=== PATIENT | female | born 1945 | race Two or more races ===

== ENCOUNTER → 2020-07-02 | Outpatient (CLI) | payer OTHER | END | disposition home or self-care (01) | LOC: PPH VACUNA | PROVIDERS: ATTEND Emergency Medicine Pediatric Emergency Medicine | DX: Z23 Encounter for immunization (principal) ==

== ENCOUNTER 2021-03-16 09:50 | Outpatient (CLI) | payer OTHER | END 2021-03-16 10:30 | disposition home or self-care (01) | LOC: PPH VACUNA 09:50 | PROVIDERS: ATTEND Emergency Medicine Pediatric Emergency Medicine | DX: Z23 Encounter for immunization (principal) ==

== ENCOUNTER 2021-09-24 08:00 | Outpatient (CLI) | payer OTHER | END 2021-09-24 08:30 | disposition home or self-care (01) | LOC: PPH VACUNA 08:00 | PROVIDERS: ATTEND Emergency Medicine Pediatric Emergency Medicine | DX: Z23 Encounter for immunization (principal) ==

== ENCOUNTER 2022-03-11 13:15 | Outpatient (CLI) | payer OTHER | END 2022-03-11 13:25 | disposition home or self-care (01) | LOC: PPH VACUNA 13:15 | PROVIDERS: ATTEND Emergency Medicine Pediatric Emergency Medicine | DX: Z23 Encounter for immunization (principal) ==

== ENCOUNTER 2023-03-28 10:21 | Outpatient (CLI) | payer OTHER | END 2023-03-28 10:35 | disposition home or self-care (01) | LOC: NUCLEAR 10:21 | PROVIDERS: ATTEND Specialist | DX: R00.1 Bradycardia, unspecified (principal); R00.2 Palpitations ==

== ENCOUNTER 2024-12-07 09:46 | Emergency (ER) | payer OTHER ==
[~2024-12-07] VITALS: Ht 149.9 cm; Wt 66.7 kg
[2024-12-07] MEDS ORDERED: CRESTOR40 MG (10:03)
[2024-12-07] MEDS ORDERED: FOSAMAX70 MG (10:03)
[2024-12-07] MEDS ORDERED: ESCITALOPRAM OXA5 MG (10:04)
[2024-12-07] MEDS ORDERED: KETAMINE ×2 (10:04→10:05)
[2024-12-07] MEDS ORDERED: ROZEREM8 MG (10:05)
[2024-12-07] MEDS ORDERED: MIRTAZAPINE7.5 MG (10:05)
[2024-12-07 10:45] LABS: BASO % 0.3 % (0.1-1.2); EOS # 0.14 (0.04-0.54); EOS % 1.4 % (0.7-7.0); HEMATOCRIT 38.3 % (34.1-44.9); HEMOGLOBIN 12.7 g/dL (11.2-15.7); LYMPH # 2.88 (1.18-3.74); LYMPH % 29.3 % (19.3-53.1); MONO # 0.78 (0.24-0.82); MONO % 7.9 % (4.7-12.5); NEUT # 5.96 (1.56-6.13); NEUT % 60.7 % (34.0-71.1); PLATELET COUNT 252 K/uL (163-369); RED CELL DISTRIBUTION WIDTH 13.5 % (11.6-14.4)
[2024-12-07 10:55] LABS: CALCIUM 9.8 mg/dL (8.5-10.1); CREATININE SERUM 0.72 mg/dL (0.55-1.02); GFR 78.54; POTASSIUM 4.42 mEq/L (3.5-5.1)
[2024-12-07 11:27] LABS: PH,URINE 5.5 (5.0-8.0); URINE APPEARANCE Clear; URINE BILIRRUBIN Negative (NEGATIVE); URINE BLOOD NHT; URINE COLOR Yellow; URINE GLUCOSE Negative (NEGATIVE); URINE KETONE Negative (NEGATIVE); URINE LEUKOCYTE Moderate; URINE NITRATE Negative; URINE PROTEIN Negative (NEGATIVE); URINE UROBILINOGEN 0.2 E.U./dl
[2024-12-07 11:32] LABS: URINE BACTERIA 1487.1 uL (0.0-1933); URINE EPITHELIAL CELLS 33.2 uL (0.0-38.8); URINE RBC 32.2 uL (0.0-20.8); URINE WBC 194.5 uL (0.0-23.2)
[2024-12-07 11:52] LABS: TYPE CELLS SQUAMOUS
== END 2024-12-07 12:33 | disposition home or self-care (01) ==
LOC: ER 09:46
PROVIDERS: Emergency Medicine
DX: S20.211A Contusion of right front wall of thorax, initial encounter (principal); S70.01XA Contusion of right hip, initial encounter; W18.39XA Other fall on same level, initial encounter; Y93.89 Activity, other specified; Y92.89 Other specified places as the place of occurrence of the external cause; Y99.9 Unspecified external cause status; R10.31 Right lower quadrant pain; I10 Essential (primary) hypertension; Z85.89 Personal history of malignant neoplasm of other organs and systems